=== PATIENT | female | born 1965 | race Caucasian/White ===

== ENCOUNTER 2019-09-19 13:40 | Outpatient (CLI) | payer BC ==
--- NOTE | 2019-09-19 14:21 | RAD ---
CERVICAL SPINE: 09/19/19 Total of four views. Lateral views were obtained in neutral, flexion and extension. INDICATIONS: Cervical disc disorder. Neck pain. Moderate degenerative changes are noted. There is loss of disc space height at C3-4, C4-5 and C5-6 le vels. Anterior osteophytes and posterior spondylosis is seen throughout these levels. There is grain combiner olisthesis at the C4-5 and C5-6 levels, slightly more pronounced at C5-6. This appears to reduce with flexion and slightly exacerbate with extension. Facet hypertrophy. IMPRESSION: Moderate degenerative changes of the cervical spine as described. POS: [facility]
== END 2019-09-19 13:41 | disposition home or self-care (01) ==
LOC: BICRAD 13:40
PROVIDERS: ATTEND Neurological Surgery
DX: M50.121 Cervical disc disorder at C4-C5 level with radiculopathy (principal); M47.22 Other spondylosis with radiculopathy, cervical region
CPT/HCPCS: 72050

== ENCOUNTER 2019-10-27 09:08 | Outpatient (CLI) | payer BC ==
--- NOTE | 2019-10-27 10:17 | ULT ---
SOFT TISSUE SONOGRAM LEFT UPPER ARM: HISTORY: Left arm pain. FINDINGS: Correlated with MRI 07/11/2019. Sonographic evaluation of the upper arm in region of pain shows homogeneous echotexture of the underl diane musculature. No solid or cystic masses. Subcutaneous tissues show no focal abnormality. No fluid collections. IMPRESSION : No abnormalities are demonstrated. Transcribed Date/Time: 10/27/2019 10:51 AM
== END 2019-10-27 09:09 | disposition home or self-care (01) ==
LOC: SCSULT 09:08
PROVIDERS: ATTEND Family Medicine
DX: M79.602 Pain in left arm (principal)
CPT/HCPCS: 76999

== ENCOUNTER 2021-02-01 00:15 | Observation (INO) | payer BC ==
[2021-02-01 01:22] VITALS: BMI 21.4
[2021-02-01] MEDS ORDERED: Morphine 2 MG/ML VIAL SLOW IVP PRN ×2 (01:48→11:59)
[2021-02-01] MEDS ORDERED: Ondansetron PF 4 MG/2 ML Vial IVP PRN ×2 (01:49→11:59)
[2021-02-01] MEDS ORDERED: Piperacillin/Tazobactam 3.375 GM in Sodium Chloride 0.9% 100 ML IVPB SCH ×3 (02:00→12:00)
[2021-02-01 02:42] LABS: SARS-CoV-2 NAA Rapid Test Not Detected (NotDetected)
[2021-02-01] MEDS: Sodium Chloride 0.9% 1,000 ML IV SCH ×2 (02:53→12:34)
[2021-02-01] MEDS: Morphine 4 MG/ML VIAL SLOW IVP PRN ×2 (04:14→08:04)
[2021-02-01] MEDS ORDERED: Bupivacaine 0.25% HCL 30 ML VIAL ONE ×2 (10:29)
[2021-02-01] MEDS ORDERED: Lidocaine 1% w/Epinephrine 1:100K 20 ML VIAL ONE (10:29)
[2021-02-01] MEDS ORDERED: Ketorolac Tromethamine 30 MG/ML VIAL ONE (10:49)
[2021-02-01] MEDS ORDERED: Succinylcholine 200 MG/10 ml SYRINGE FS ONE (10:49)
[2021-02-01] MEDS ORDERED: PROPOFOL 200 MG/20 ML VIAL ONE (10:49)
[2021-02-01] MEDS ORDERED: Glycopyrrolate 0.2 MG/ML 5 ML SYRINGE ONE (10:49)
[2021-02-01] MEDS ORDERED: Dexamethasone 20 MG/5 ML VIAL ONE (10:49)
[2021-02-01] MEDS ORDERED: Ondansetron PF 4 MG/2 ML Vial ONE (10:49)
[2021-02-01] MEDS ORDERED: Fentanyl 100 MCG/2 ML VIAL ONE (10:50)
[2021-02-01] MEDS ORDERED: Promethazine HCl 25 MG/ML VIAL IM PRN ×2 (11:59→12:08)
[2021-02-01] MEDS ORDERED: Dextrose 50% Abboject 50 ML SYRINGE SLOW IVP PRN (11:59)
[2021-02-01] MEDS ORDERED: Dextrose 5% in Water 1,000 ML IV PRN (11:59)
[2021-02-01] MEDS ORDERED: hydrALAZINE 20 MG/ML VIAL SLOW IVP PRN (11:59)
[2021-02-01] MEDS ORDERED: Morphine 4 MG/ML VIAL SLOW IVP PRN (11:59)
[2021-02-01] MEDS ORDERED: D5 1/2 NS w/20 mEq KCL 1,000 ML IV SCH (12:00)
[2021-02-01] MEDS ORDERED: Ketorolac Tromethamine 30 MG/ML VIAL IVP SCH (12:00)
[2021-02-01] MEDS ORDERED: Ondansetron HCl/PF 4 MG/2 ML Vial IVP PRN (12:08)
[2021-02-01] MEDS ORDERED: Promethazine HCl 25 MG/ML VIAL IVPB PRN (12:08)
[2021-02-01 15:18] VITALS: TEMP 97.3
[2021-02-01 15:21] VITALS: BP 149/80
[2021-02-01] MEDS ORDERED: Famotidine/PF 20 mg/2ml Vial SLOW IVP SCH (21:00)
[2021-02-01] MEDS ORDERED: Famotidine 20 MG TAB PO SCH (21:00)
[2021-02-02] MEDS ORDERED: Enoxaparin Sodium 40 MG/0.4 ML SYRINGE SC SCH (09:00)
== END 2021-02-01 14:50 | disposition home or self-care (01) ==
LOC: SURG B 01:03
PROVIDERS: ADMIT Surgery; ATTEND Surgery
PROC: 0DTJ4ZZ Resection of Appendix, Percutaneous Endoscopic Approach (ICD-10-PCS; principal; 2021-02-01)
DX: K35.891 Other acute appendicitis without perforation, with gangrene (principal); Z20.822 Contact with and (suspected) exposure to COVID-19; Z88.5 Allergy status to narcotic agent; Z79.82 Long term (current) use of aspirin; Z79.890 Hormone replacement therapy; Z79.899 Other long term (current) drug therapy; Z87.891 Personal history of nicotine dependence
CPT/HCPCS: 88304; 96366; 96375; 96376; G0378; J1100; J1885; J2270; J2405; J2543; J2704; J3010; J3490; S0020; U0002; U0005

== ENCOUNTER 2021-06-16 07:55 | Outpatient (CLI) | payer BC | END 2021-06-16 07:56 | disposition home or self-care (01) | LOC: BICMAMMO 07:55 | PROVIDERS: ATTEND Family Medicine | DX: Z12.31 Encounter for screening mammogram for malignant neoplasm of breast (principal) | CPT/HCPCS: 77063; 77067 ==

== ENCOUNTER 2022-07-21 14:03 | Outpatient (CLI) | payer BC | END 2022-07-21 14:04 | disposition home or self-care (01) | LOC: BICMAMMO 14:03 | PROVIDERS: ATTEND Family Medicine | DX: Z12.31 Encounter for screening mammogram for malignant neoplasm of breast (principal); Z13.820 Encounter for screening for osteoporosis; N95.1 Menopausal and female climacteric states; M85.851 Other specified disorders of bone density and structure, right thigh; M85.852 Other specified disorders of bone density and structure, left thigh | CPT/HCPCS: 77063; 77067; 77080 ==

== ENCOUNTER 2025-02-05 14:12 | Outpatient (CLI) | payer OTHER | END 2025-02-05 14:13 | disposition home or self-care (01) | LOC: BICMAMMO 14:12 | PROVIDERS: ATTEND Family Medicine | DX: Z12.31 Encounter for screening mammogram for malignant neoplasm of breast (principal) | CPT/HCPCS: 77063; 77067 ==